=== PATIENT | male | born 1935 | race Caucasian/White ===

== ENCOUNTER 2017-02-07 10:53 | Emergency (ER) | payer MEDICARE, OTHER ==
[2017-02-07] MEDS ORDERED: Sodium Chloride 0.9% 10 ML Syringe FLUSH PRN (11:13)
--- NOTE | 2017-02-07 12:00 | CR ---
Chest: Portable view of the chest was obtained. Comparison: No prior chest x-ray. Mild linear density is seen with left base. Lungs otherwise are clear. Heart size is normal. Tortuous thoracic aorta is seen. Sternotomy for prior CABG is noted. Degenerative change is seen within the left shoulder. Osteopenia is noted. Impression: 1. Linear densities within the left base. Differential includes scarring, atelectasis as well as minimal pneumonia/aspiration. 2. Other incidental findings. Diagnostic code #3
--- NOTE | 2017-02-07 12:10 | EDM.PDOC ---
ED HPI GENERAL MEDICAL PROBLEM - General Chief Complaint: Cardiovascular Problem Stated Complaint: [facility] Time Seen by Provider: 02/07/17 10:59 Source of Information: Reports: Patient, EMS, RN Notes Reviewed - History of Present Illness INITIAL COMMENTS - FREE TEXT/NARRATIVE: 81-year-old male suffered near-syncope a short time ago. He was at a in [place] when he began to become weak, dizzy, lightheaded. He is reported to have suffered near-syncope. He does not believe he passed out completely nor do we have any report of that. He does not recall having any chest pain. He states that he did feel very warm, nauseated and also that there was a component of vertigo type dizziness as well. He believes he was standing when he first began to feel lightheaded and dizzy. He does have strong history of coronary artery disease with history of triple bypass carotid along time ago and also has had a total of "13 stents" he does have chronic dyspnea with exertion. He feels that he has been somewhat more short of breath the last few days. No cough fever chills. No abdominal pain,vomiting or diarrhea. Of note he states he did have an episode about 2 weeks ago where he became weak, lightheaded, dizzy and did pass out for a brief period of time. This was late in the evening. He states that I just went to bed and felt fine the next morning. Frontal Headache Pain Score (Numeric/FACES): 5 - Related Data Allergies Allergy/AdvReac Type Severity Reaction Status Date / Time latex Allergy Cannot Verified 02/07/17 11:04 Remember naproxen [From Aleve] Allergy Cannot Verified 02/07/17 11:04 Remember Home Meds: Home Meds Carvedilol 6.25 mg PO BID 02/07/17 [History] Indapamide 2.5 mg PO DAILY 02/07/17 [History] Isosorbide Mononitrate [Isosorbide Mononitrate ER] 120 mg PO DAILY 02/07/17 [ History] Levothyroxine 150 mcg PO DAILY 02/07/17 [History] Montelukast [Singulair] 10 mg PO BEDTIME 02/07/17 [History] Pantoprazole [ProTONIX] 40 mg PO DAILY 02/07/17 [History] Potassium Chloride 80 meq PO BID 02/07/17 [History] Ranolazine [Ranexa] 1,000 mg PO BID 02/07/17 [History] Simvastatin [Zocor] 20 mg PO BEDTIME 02/07/17 [History] Tamsulosin [Flomax] 0.4 mg PO BEDTIME 02/07/17 [History] Torsemide 60 mg PO DAILY 02/07/17 [History] rOPINIRole [Requip] 2 mg PO BEDTIME 02/07/17 [History] Past Medical History HEENT History: Reports: Hard of Hearing, Impaired Vision Other HEENT History: wears corrective lenses Cardiovascular History: Reports: Bypass, Heart Murmur, High Cholesterol, Hypertension, Stents Respiratory History: Reports: Pneumonia, Recurrent, Other (See Below) Other Respiratory History: "weak lungs" Gastrointestinal History: Reports: Chronic Constipation, GERD Endocrine/Metabolic History: Reports: Hypothyroidism - Infectious Disease History Infectious Disease History: Reports: Chicken Pox, Measles, Mumps - Past Surgical History HEENT Surgical History: Reports: None Cardiovascular Surgical History: Reports: Coronary Artery Bypass Respiratory Surgical History: Reports: None GI Surgical History: Reports: Appendectomy, Cholecystectomy Musculoskeletal Surgical History: Reports: Other (See Below) Other Musculoskeletal Surgeries/Procedures:: Screw placed near right clavicle Social & Family History - Tobacco Use Smoking Status *Q: Never Smoker Second Hand Smoke Exposure: No - Caffeine Use Caffeine Use: Reports: Coffee - Recreational Drug Use Recreational Drug Use: No ED ROS GENERAL - Review of Systems Review Of Systems: See Below Constitutional: Reports: Diaphoresis (Mild, gone). Denies: Fever, Chills HEENT: Denies: Sinus Problem, Throat Pain Respiratory: Reports: Shortness of Breath. Denies: Pleuritic Chest Pain ( Chronically), Cough Cardiovascular: Reports: Lightheadedness, Syncope (Near syncope). Denies: Chest Pain, Edema GI/Abdominal: Reports: Nausea. Denies: Abdominal Pain, Diarrhea, Hematochezia, Melena, Vomiting Musculoskeletal: Reports: No Symptoms Skin: Reports: Pallor, Diaphoresis (Mild) Neurological: Reports: Dizziness, Weakness (Generalized). Denies: Trouble Speaking ED EXAM, GENERAL - Physical Exam Exam: See Below General Appearance: Alert, No Apparent Distress Eye Exam: Bilateral Eye: PERRL Throat/Mouth: Normal Inspection Head: Atraumatic Neck: Supple, Full Range of Motion Respiratory/Chest: No Respiratory Distress, Lungs Clear, Normal Breath Sounds Cardiovascular: Regular Rate, Rhythm, Systolic Murmur GI/Abdominal: Soft, Non-Tender Back Exam: No: CVA Tenderness (L), CVA Tenderness (R) Extremities: Normal Inspection, Pedal Edema. No: Normal Range of Motion, Leg Pain (Trace bilateral), Increased Warmth, Redness Neurological: Alert, Oriented, No Motor/Sensory Deficits Skin Exam: Warm, Dry, Normal Color EKG INTERPRETATION EKG Date: 02/07/17 Rhythm: NSR [place]: Normal P-Wave: Present QRS: Normal ST-T: Other (There is T-wave flattening inferior and lateral leads, no major ST elevation or depression) Course - Vital Signs Last Recorded V/S: Last Vital Signs Temp 97.8 F 02/07/17 10:58 Pulse 59 L 02/07/17 10:58 Resp 16 02/07/17 10:58 BP 128/80 02/07/17 10:58 Pulse Ox 97 02/07/17 10:58 Orthostatic Blood Pressure [ 132/68 Standing] Orthostatic Blood Pressure [ 120/80 Sitting] Orthostatic Blood Pressure [ 128/80 Supine] - Orders/Labs/Meds Orders: Active Orders 24 hr Category Date Time Status EKG 12 Lead [EKG Documentation Completion] [RC] STAT Care 02/07/17 11:13 Active Peripheral IV Care [RC] . DIRECTED Care 02/07/17 11:13 Active Sodium Chloride 0.9% [Saline Flush] Med 02/07/17 11:13 Active 10 ml FLUSH ASDIRECTED PRN Peripheral IV Insertion Adult [OM.PC] Stat Oth 02/07/17 11:13 Ordered Medication Orders Sodium Chloride (Saline Flush) 10 ml FLUSH ASDIRECTED PRN PRN Reason: Keep Vein Open Last Admin: 02/07/17 11:41 Dose: 10 ml Labs: Laboratory Tests 02/07/17 02/07/17 Range/Units 11:30 11:30 WBC 6.63 (4.23-9.07) K/mm3 RBC 4.38 L (4.63-6.08) M/mm3 Hgb 13.2 L (13.7-17.5) gm/L Hct 38.3 L (40.1-51.0) % MCV 87.4 (79.0-92.2) fl MCH 30.1 (25.7-32.2) pg MCHC 34.5 (32.2-35.5) g/dl RDW Std Deviation 41.1 (35.1-43.9) fL Plt Count 192 (163-337) K/mm3 MPV 9.9 (9.4-12.3) fl Neut % (Auto) 62.7 (34.0-67.9) % Lymph % (Auto) 22.5 (21.8-53.1) % [place] % (Auto) 7.4 (5.3-12.2) % Eos % (Auto) 6.0 (0.8-7.0) Baso % (Auto) 0.8 (0.1-1.2) % Neut # (Auto) 4.16 (1.78-5.38) K/mm3 Lymph # (Auto) 1.49 (1.32-3.57) K/mm3 [place] # (Auto) 0.49 (0.30-0.82) K/mm3 Eos # (Auto) 0.40 (0.04-0.54) K/mm3 Baso # (Auto) 0.05 (0.01-0.08) K/mm3 Sodium 141 (136-145) mEq/L Potassium 3.3 L (3.5-5.1) mEq/L Chloride 100 (98-107) mEq/L Carbon Dioxide 30 (21-32) mEq/L Anion Gap 14.3 (5-15) BUN 36 H (7-18) mg/dL Creatinine 1.9 H (0.7-1.3) mg/dL Est Cr Clr Drug Dosing 31.53 mL/min Estimated GFR (MDRD) 34 (>60) mL/min BUN/Creatinine Ratio 18.9 H (14-18) Glucose 172 H (83-115) mg/dL Calcium 9.3 (8.5-10.1) mg/dL Total Bilirubin 0.6 (0.2-1.0) mg/dL AST 23 (15-37) U/L ALT 32 (16-63) U/L Alkaline Phosphatase 67 (46-116) U/L Troponin I < 0.017 (0.00-0.056) ng/mL NT-Pro-B Natriuret Pep 196 (0-450) pg/mL Total Protein 7.0 (6.4-8.2) g/dl Albumin 3.5 (3.4-5.0) g/dl Globulin 3.5 gm/dL Albumin/Globulin Ratio 1.0 (1-2) Meds: Medications Generic Name Dose Route Start Last Admin Trade Name Zachariahq PRN Reason Stop Dose Admin Sodium Chloride 10 ml 02/07/17 11:13 02/07/17 11:41 Saline Flush FLUSH 10 ml ASDIRECTED PRN Administration Keep Vein Open - Re-Assessments/Exams Free Text/Narrative Re-Assessment/Exam: 02/07/17 12:53 Labs have come back relatively normal. Patient is been resting comfortably what pressure has been running in the 120s and 130s systolic. sinus rhythm, no ectopy. Discharge instructions as documented. Departure - Departure Time of Disposition: 12:50 Disposition: Home, Self-Care 01 Condition: Fair Clinical Impression: Near syncope Instructions: Near-Syncope, [id number] Referrals: PCP,Not In Area [Primary Care Provider] - Forms: ED Department Discharge Additional Instructions: Drink plenty of water to maintain hydration, continue current medications for now. If you do get weak, dizzy or lightheaded again get sure he had low as we discussed, best to lay down if possible until the dizziness resolves. See your doctor this next week regarding the episode today and the episode of passing out 2 weeks ago. Your medications may need to be adjusted. Return to ED as needed if symptoms worsening in any way. - My Orders Last 24 Hours: My Active Orders 02/07/17 11:13 EKG 12 Lead [EKG Documentation Completion] [RC] STAT Peripheral IV Care [RC] . DIRECTED Sodium Chloride 0.9% [Saline Flush] 10 ml FLUSH ASDIRECTED PRN Peripheral IV Insertion Adult [OM.PC] Stat - Assessment/Plan Last 24 Hours: My Active Orders 02/07/17 11:13 EKG 12 Lead [EKG Documentation Completion] [RC] STAT Peripheral IV Care [RC] . DIRECTED Sodium Chloride 0.9% [Saline Flush] 10 ml FLUSH ASDIRECTED PRN Peripheral IV Insertion Adult [OM.PC] Stat
== END 2017-02-07 13:25 | disposition home or self-care (01) ==
LOC: JD.ED 10:53 → EDBD 10:53 → JD.ED 13:25
DX: R55 Syncope and collapse (principal); I10 Essential (primary) hypertension; Z91.040 Latex allergy status; Z88.5 Allergy status to narcotic agent; Z79.899 Other long term (current) drug therapy; I25.10 Atherosclerotic heart disease of native coronary artery without angina pectoris; E03.9 Hypothyroidism, unspecified; Z95.1 Presence of aortocoronary bypass graft; Z95.5 Presence of coronary angioplasty implant and graft
CPT/HCPCS: 36415; 71010; 80053; 83880; 84484; 85025; 93005; 99285; J7050; 93010